=== PATIENT | female | born 1980 | race Caucasian/White ===

== ENCOUNTER 2020-05-07 16:02 | Emergency (ER) | payer MEDICAID, MEDICARE ==
[~2020-05-07] VITALS: Ht 175.3 cm; Wt 80.0 kg
[~2020-05-07 16:02] MED LIST: SAFF1000 PO; SODI1TAB23 PO; [UNRECOGNIZED DRUG - OTHER] PO; [UNRECOGNIZED DRUG - OTHER] PO
[2020-05-07] MEDS ORDERED: normal saline 1000ML IV soln IVB ONE ×2 (16:55→18:10)
[2020-05-07] MEDS ORDERED: ondansetron/PF 4mg/2ml inj IV ONE (16:55)
--- NOTE | 2020-05-07 17:36 | NUR ---
pt is alert but drougy answering all question pt thought she was taking tylenol but was taking xanax took about 14 though out the day today
[2020-05-07 18:01] LABS: BASOPHILS # (AUTO) 0.1 X10'3 (0-0.2); EOSINOPHILS # (AUTO) 0.1 X10'3 (0-0.9); EOSINOPHILS % (AUTO) 1.4 % (0-6); HEMATOCRIT 43.9 % (35.0-45.0); HEMOGLOBIN 14.8 g/dl (12.0-16.0); LYMPHOCYTES # (AUTO) 2.1 X10'3 (1.1-4.8); LYMPHOCYTES % (AUTO) 44.9 % (21-51); MEAN CORPUSCULAR HEMOGLOBIN 28.7 PG (27.0-31.0); MEAN CORPUSCULAR HGB CONC 33.7 g/dL (33.0-36.5); MEAN CORPUSCULAR VOLUME 85.4 FL (78-98); MEAN PLATELET VOLUME 9.2 FL (7.4-10.4); MONOCYTES # (AUTO) 0.3 X10'3 (0-0.9); MONOCYTES % (AUTO) 5.6 % (2-12); NEUTROPHILS # (AUTO) 2.2 X10'3 (1.8-7.7); NEUTROPHILS % (AUTO) 46.1 % (42-75); PLATELET COUNT 217 X10'3 (140-440); RED BLOOD COUNT 5.14 X10'6 (4.20-5.60); RED CELL DISTRIBUTION WIDTH 13.6 % (11.5-14.5); WHITE BLOOD COUNT 4.8 X10'3 (4.5-11.0)
[2020-05-07 18:17] LABS: ALANINE AMINOTRANSFERASE 33 U/L (12-78); ALBUMIN 3.4 G/DL (3.4-5.0); ALBUMIN/GLOBULIN RATIO 0.8 (1.1-1.5); ALKALINE PHOSPHATASE 79 IU/L (46-116); ANION GAP 8 (8-16); ASPARTATE AMINO TRANSFERASE 26 U/L (10-37); BILIRUBIN,TOTAL 0.3 MG/DL (0.1-1.0); BLOOD UREA NITROGEN 16 MG/DL (7-18); BUN/CREATININE RATIO 13.9 (6.6-38.0); CALCIUM 8.9 MG/DL (8.5-10.1); CHLORIDE 106 MMOL/L (99-107); CREATININE 1.15 MG/DL (0.40-0.90); GLUCOSE 102 MG/DL (70-104); LIPASE 75 U/L (73-393); POTASSIUM 3.9 MMOL/L (3.5-5.1); SODIUM 143 MMOL/L (135-145); TOTAL CARBON DIOXIDE 28.6 MMOL/L (24-32); TOTAL PROTEIN 7.5 G/DL (6.4-8.2); eGFR 53 ML/MIN
[2020-05-07 19:00] VITALS: BP 101/64
--- NOTE | 2020-05-07 20:04 | NUR ---
Pt alert and groggy. Pt keeps opening door knowing she is COVID positive. 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 Pt unhappy with the education provided. Pt then tried recording interaction with this RN. I attended to her discomfort and adjusted the bed to make her more comfortable and informed her that I did not consent to being recorded and would be leaving the room. Asked Pt if she had any current needs, Pt stated that she does not have any needs at this time.
[2020-05-07] MEDS ORDERED: ONDA4TAB6 PO (20:55)
[2020-05-07] MEDS ORDERED: FLUC150T66 PO (20:55)
--- NOTE | 2020-05-07 20:57 | NUR ---
Pt currently sleeping on [facility] with no S/S of acute distress.
--- NOTE | 2020-05-07 21:36 | NUR ---
PT CAME IN WITH BLACK BOOTS AND SHE WAS SENT HOME WITH THEM ALONG WITH HER PURSE, CELL PHONE AND CLOTHES SHE CAME IN WITH. PT WAS PICKED UP BY FRIEND
== END 2020-05-07 21:39 | disposition home or self-care (01) ==
LOC: ER 16:03
DX: U07.1 COVID-19 (principal); R11.2 Nausea with vomiting, unspecified; T42.4X5A Adverse effect of benzodiazepines, initial encounter; B37.3 Candidiasis of vulva and vagina; Y92.89 Other specified places as the place of occurrence of the external cause; F17.200 Nicotine dependence, unspecified, uncomplicated; Z79.899 Other long term (current) drug therapy
CPT/HCPCS: 36415; 80053; 83690; 85025; 96374; 99283; J2405; J7030

== ENCOUNTER 2021-03-08 09:18 | Emergency (ER) | payer MEDICARE, OTHER ==
[~2021-03-08] VITALS: Ht 175.3 cm; Wt 74.5 kg
[~2021-03-08 09:18] MED LIST changes: +ONDA4TAB6 PO
[2021-03-08] MEDS ORDERED: fentaNYL/PF 50MCG/1 ML 2ML syringe IM ONE (11:25)
[2021-03-08] MEDS ORDERED: dexamethasone sod phosphate 10mg/ml inj IV STA (11:31)
[2021-03-08] MEDS ORDERED: fentaNYL/PF 50MCG/1 ML 2ML syringe IV ONE ×2 (11:35→12:35)
[2021-03-08] MEDS ORDERED: normal saline 1000ML IV soln IVB ONE (11:35)
[2021-03-08] MEDS ORDERED: ampicillin/sulbac 3gm/NS 100ml 100 ML IV ONE (11:41)
[2021-03-08] MEDS ORDERED: LIDOcaine 1% W/epiNEPHrine 1:200,000 10ml vial IJ ONE (11:55)
[2021-03-08] MEDS ORDERED: LIDOcaine 1% w/epiNEPHrine 1:200,000 30ml vial IJ ONE (11:55)
[2021-03-08] MEDS ORDERED: ondansetron/PF 4mg/2ml inj IV ONE (12:35)
[2021-03-08] MEDS ORDERED: AMOX-422 PO (12:35)
[2021-03-08] MEDS ORDERED: CLIN150C2 PO (12:53)
[2021-03-08 12:57] VITALS: BP 121/70
== END 2021-03-08 12:58 | disposition home or self-care (01) ==
LOC: ER 09:19
DX: J36 Peritonsillar abscess (principal); R07.0 Pain in throat; Z88.0 Allergy status to penicillin; Z79.2 Long term (current) use of antibiotics; Z79.899 Other long term (current) drug therapy
CPT/HCPCS: 42700; 96365; 96375; 96376; 99284; J1100; J2405; J3010; J7030; J0295

== ENCOUNTER 2021-07-08 07:00 | Emergency (ER) | payer MEDICARE, MEDICAID ==
[~2021-07-08] VITALS: Ht 175.3 cm; Wt 70.5 kg
[2021-07-08] MEDS ORDERED: dexamethasone sod phosphate 10mg/ml inj IV STA (07:26)
[2021-07-08] MEDS ORDERED: clindamycin-Cleocin 900mg/D5W 50 ML IV ONE (07:30)
[2021-07-08] MEDS ORDERED: ketorolac tromethamine 15mg/ml inj. IV ONE (07:30)
[2021-07-08] MEDS ORDERED: LIDOcaine Viscous 15ml cup MM PRN (07:40)
--- NOTE | 2021-07-08 07:45 | NUR ---
first contact with pt. presents to ed with swollen/sore throat. md at bedside. piv started, meds given per emar, labs drawn. no distress.
[2021-07-08] MEDS ORDERED: iohexol 300mg/ml 100ml inj. ONE (07:49)
--- NOTE | 2021-07-08 08:04 | NUR ---
pt to ct
--- NOTE | 2021-07-08 08:15 | NUR ---
returned from ct without incident.
[2021-07-08 08:38] LABS: BASOPHILS % (AUTO) 0.3 % (0-1); EOSINOPHILS % (AUTO) 0.6 % (0-6); HEMATOCRIT 35.9 % (35.0-45.0); HEMOGLOBIN 11.7 g/dl (12.0-16.0); LYMPHOCYTES # (AUTO) 1.1 X10'3 (1.1-4.8); LYMPHOCYTES % (AUTO) 12.2 % (21-51); MEAN CORPUSCULAR HEMOGLOBIN 25.5 PG (27.0-31.0); MEAN CORPUSCULAR HGB CONC 32.6 g/dL (33.0-36.5); MEAN CORPUSCULAR VOLUME 78.3 FL (78-98); MEAN PLATELET VOLUME 9.3 FL (7.4-10.4); MONOCYTES # (AUTO) 0.6 X10'3 (0-0.9); MONOCYTES % (AUTO) 7.2 % (2-12); NEUTROPHILS % (AUTO) 79.7 % (42-75); PLATELET COUNT 197 X10'3 (140-440); RED BLOOD COUNT 4.58 X10'6 (4.20-5.60); WHITE BLOOD COUNT 8.8 X10'3 (4.5-11.0)
[2021-07-08 08:50] LABS: ALBUMIN 3.3 G/DL (3.4-5.0); ALBUMIN/GLOBULIN RATIO 0.8 (1.1-1.5); ALKALINE PHOSPHATASE 81 IU/L (46-116); ANION GAP 5 (8-16); BLOOD UREA NITROGEN 15 MG/DL (7-18); BUN/CREATININE RATIO 19.5 (6.6-38.0); CALCIUM 8.7 MG/DL (8.5-10.1); CHLORIDE 106 MMOL/L (99-107); CREATININE 0.77 MG/DL (0.40-0.90); GLUCOSE 95 MG/DL (70-104); POTASSIUM 4.4 MMOL/L (3.5-5.1); SODIUM 137 MMOL/L (135-145); TOTAL CARBON DIOXIDE 26.1 MMOL/L (24-32); TOTAL PROTEIN 7.5 G/DL (6.4-8.2); eGFR 83 ML/MIN
[2021-07-08 08:58] VITALS: BP 108/62
[2021-07-08 09:20] LABS: ALANINE AMINOTRANSFERASE 21 U/L (12-78); ASPARTATE AMINO TRANSFERASE 26 U/L (10-37); BILIRUBIN,TOTAL 0.5 MG/DL (0.1-1.0)
[2021-07-08 09:24] LABS: HCG SERUM QL NEGATIVE
--- NOTE | 2021-07-08 10:24 | NUR ---
bedside report given to ems.
--- NOTE | 2021-07-08 10:29 | NUR ---
telephone report to tisha carvalho at [facility].
== END 2021-07-08 10:30 | disposition hospice, inpatient (51) ==
LOC: ER 07:00
DX: J36 Peritonsillar abscess (principal); Z20.822 Contact with and (suspected) exposure to COVID-19; R50.9 Fever, unspecified; Z88.0 Allergy status to penicillin; Z79.899 Other long term (current) drug therapy
CPT/HCPCS: 36415; 70491; 80053; 83605; 84145; 84703; 85025; 87040; 87635; 96365; 96375; 99285; C9803; J1100; J1885; J3490; Q9967